=== PATIENT | male | born 1945 | race Caucasian/White ===

== ENCOUNTER → 2018-01-19 12:26 | Outpatient (CLI) | payer OTHER, SELFPAY ==
--- NOTE | 2018-01-19 12:31 | CT_ITS ---
STUDY: CT CHEST WITHOUT CONTRAST REASON FOR EXAM: Male, 72 years old. Coughing and wheezing. Dyspnea. RADIATION DOSAGE (If Supplied By Facility): CTDIvol = ( 18.33 ) mGy, DLP = ( 609.07 ) mGycm TECHNIQUE: Transaxial imaging was performed without the administration of intravenous contrast material. Individualized dose optimization techniques were used for this CT. COMPARISON: None. FINDINGS: Normal lung volumes. Calcified granuloma in the right apex. Small linear areas of scar or subsegmental atelectasis in both lower lobes. No infiltrates. No effusions. Normal heart and pericardium. Normal mediastinum. Normal hilar regions. Normal unenhanced pulmonary arteries. Normal aorta arch and descending thoracic aorta. There are multi-level degenerative changes of the thoracic spine. No acute abnormality. Deformity of the right second rib either from previous fracture or possibly Paget's disease. There is no demonstrated acute abnormality of the visualized upper abdomen. CT/Chest without Contrast IMPRESSION: No significant abnormality. No evidence for pneumonia. Electronically Signed: Giovanny eBnnett MD at 17:15 EST , Service support ,
== END ==
PROVIDERS: Family Provider Family Medicine; PCP Family Medicine
DX: R06.02 Shortness of breath (principal)
CPT/HCPCS: 71250

== ENCOUNTER → 2022-06-24 | Outpatient (CLI) | payer OTHER, SELFPAY ==
--- NOTE | 2022-06-24 10:37 | ECHOD_ITS ---
Reason For Study: ischemic heart diseease Procedure This was a 2D Doppler, Color Flow transthoracic echocardiogram. Exam performed in department. Left Ventricle Normal LV size. Sigmoid septum. Left ventricular systolic function is normal. The estimated ejection fraction is .65 %. Stage 1 diastolic dysfunction. No regional wall motion abnormalities noted. Right Ventricle Normal RV size. Normal systolic function. Atria Normal left atrium. Normal right atrium. Mitral Valve Normal mitral valve. Tricuspid Valve Normal tricuspid valve. Mild eccentric tricuspid valve insufficiency. Pulmonary artery systolic pressure is 23 mmHg. Aortic Valve Normal aortic valve. Trivial aortic valve insufficiency. Pulmonic Valve Normal pulmonic valve. Great Vessels Normal aortic root. Pericardium/Pleural No pericardial effusion. MMode/2D Measurements & Calculations RVDd: 2.7 cm Ao root diam: 3.3 cm LAV(MOD-bp): 36.2 ml LAV(MOD-bp) Indexed: 16.5 ml/m2 LAV(MOD-sp2): 37.4 ml LAV(MOD-sp4): 30.3 ml SV(MOD-sp4): 37.0 ml SV(sp4-el): 41.5 ml LVAd ap4: 26.1 cm2 LVLd ap4: 8.7 cm EDV(MOD-sp4): 65.4 ml EDV(sp4-el): 66.6 ml LVAs ap4: 14.2 cm2 LVLs ap4: 6.9 cm ESV(MOD-sp4): 28.4 ml ESV(sp4-el): 25.1 ml EF(MOD-sp4): 56.6 % EF(sp4-el): 62.3 % LA A4 area: 13.8 cm2 RA A4 area: 12.6 cm2 Time Measurements MV dec time: 0.36 sec Doppler Measurements & Calculations MV E max nabor: 70.9 cm/sec Lat Peak E' Nabor: 9.8 cm/sec Med Peak E' Nabor: 7.3 cm/sec MV A max nabor: 87.9 cm/sec E/E' lat: 7.3 E/E' med: 9.8 MV E/A: 0.81 MV dec slope: 199.7 cm/sec2 Ao V2 max: 145.2 cm/sec AI max nabor: 336.0 cm/sec Ao max P.6 mmHg AI max P.3 mmHg Ao V2 mean: 100.3 cm/sec AI dec slope: 264.0 cm/sec2 Ao mean P.6 mmHg AI P1/2t: 372.8 msec Ao V2 VTI: 28.6 cm LV V1 max: 106.0 cm/sec TR max nabor: 228.5 cm/sec LV V1 max P.5 mmHg TR max P.9 mmHg LV V1 mean P.5 mmHg LV V1 mean: 74.2 cm/sec LV V1 VTI: 20.7 cm ECHO/Echo Complete Interpretation Summary Normal LV size. Sigmoid septum. Left ventricular systolic function is normal. The estimated ejection fraction is .65 %. Stage 1 diastolic dysfunction. Pulmonary artery systolic pressure is 23 mmHg. Trivial aortic valve insufficiency. Ordering Physician: SANDRA MONTERO Referring Physician: SANDRA MONTERO Performed By: Guerita Porras RCS
== END | disposition home or self-care (01) ==
PROVIDERS: PCP Family Medicine
DX: I25.9 Chronic ischemic heart disease, unspecified (principal); I35.1 Nonrheumatic aortic (valve) insufficiency
CPT/HCPCS: 93306